=== PATIENT | female | born 1940 | race Caucasian/White ===

== ENCOUNTER 2023-12-09 08:35 | Day surgery (SDC) | payer OTHER, MEDICARE ==
[2023-12-07 10:41] VITALS: BMI 22.8
[2023-12-09] MEDS: TROPICAMIDE 1% OPHTH SOLN 15 ML BOTTLE ONE (09:25)
[2023-12-09] MEDS: CYCLOPENTOLATE 2% OPHTH SOLN 2 ML BOTTLE ONE (09:25)
[2023-12-09] MEDS: CIPROFLOXACIN 0.3% EYE DROPS 5 ML BOTTLE ONE (09:25)
[2023-12-09] MEDS: PHENYLEPHRINE 2.5% OPTHALMIC DROP 2ML BOTTLE ONE (09:25)
[2023-12-09 09:26] VITALS: RESP 18
[2023-12-09] MEDS ORDERED: EPINEPHrine/PF 1 MG/1 ML (1:1,000) AMPULE ONE (09:28)
[2023-12-09] MEDS ORDERED: CARBACHOL 0.01% INTRA-OCULAR 1.5 ML VIAL ONE (09:28)
[2023-12-09] MEDS ORDERED: BSS (NA/CA/MG/K) BALANCED SALT SOLUTION OPHTH SOLN 15 ML BOTTLE ONE (09:28)
[2023-12-09] MEDS ORDERED: LIDOCAINE 1% P/F 10 MG/ML VIAL ONE (09:28)
[2023-12-09] MEDS ORDERED: TETRACAINE 0.5% OPHTH SOLN 2 ML BOTTLE ONE (09:28)
[2023-12-09] MEDS ORDERED: NEO/POLYMYX B SULF/DEXAMETH OPHTHALMIC 5ML BOTTLE ONE (09:28)
[2023-12-09] MEDS ORDERED: MIDAZOLAM HCL 2 MG/2 ML SINGLE DOSE VIAL ONE (10:22)
[2023-12-09] MEDS ORDERED: ONDANSETRON 4 MG/2 ML VIAL ONE (10:22)
[2023-12-09 12:09] VITALS: BP 121/56; PULSE 68; TEMP 98
== END 2023-12-09 12:00 | disposition home or self-care (01) ==
LOC: FASU 08:35
PROVIDERS: ATTEND Ophthalmology
PROC: 08RK3JZ Replacement of Left Lens with Synthetic Substitute, Percutaneous Approach (ICD-10-PCS; principal; 2023-12-09 10:51)
DX: H26.8 Other specified cataract (principal)
CPT/HCPCS: 66984; V2632; 82962

== ENCOUNTER 2024-03-23 07:09 | Day surgery (SDC) | payer OTHER, MEDICARE ==
[2024-03-17 14:47] VITALS: BMI 22.8
[2024-03-23] MEDS ORDERED: CARBACHOL 0.01% INTRA-OCULAR 1.5 ML VIAL ONE (07:22)
[2024-03-23] MEDS ORDERED: NEO/POLYMYX B SULF/DEXAMETH OPHTHALMIC 5ML BOTTLE ONE (07:22)
[2024-03-23] MEDS ORDERED: TETRACAINE 0.5% OPHTH SOLN 2 ML BOTTLE ONE (07:22)
[2024-03-23] MEDS ORDERED: EPINEPHrine/PF 1 MG/1 ML (1:1,000) AMPULE ONE (07:22)
[2024-03-23] MEDS ORDERED: BSS (NA/CA/MG/K) BALANCED SALT SOLUTION OPHTH SOLN 15 ML BOTTLE ONE (07:22)
[2024-03-23] MEDS ORDERED: LIDOCAINE 1% P/F 10 MG/ML VIAL ONE (07:22)
[2024-03-23] MEDS: TROPICAMIDE 1% OPHTH SOLN 15 ML BOTTLE ONE (07:30)
[2024-03-23] MEDS: PHENYLEPHRINE 2.5% OPTHALMIC DROP 2ML BOTTLE ONE (07:30)
[2024-03-23] MEDS: CIPROFLOXACIN 0.3% EYE DROPS 5 ML BOTTLE ONE (07:30)
[2024-03-23] MEDS: CYCLOPENTOLATE 2% OPHTH SOLN 2 ML BOTTLE ONE (07:30)
[2024-03-23] MEDS ORDERED: MIDAZOLAM HCL 2 MG/2 ML SINGLE DOSE VIAL ONE (08:30)
[2024-03-23] MEDS ORDERED: ONDANSETRON 4 MG/2 ML VIAL ONE (08:52)
[2024-03-23 13:19] VITALS: RESP 16; TEMP 96.8
[2024-03-23 13:24] VITALS: BP 134/66; PULSE 78
== END 2024-03-23 10:05 | disposition home or self-care (01) ==
LOC: FASU 07:09
PROVIDERS: ATTEND Ophthalmology
PROC: 08RJ3JZ Replacement of Right Lens with Synthetic Substitute, Percutaneous Approach (ICD-10-PCS; principal; 2024-03-23 08:53)
DX: H26.8 Other specified cataract (principal); H21.541 Posterior synechiae (iris), right eye
CPT/HCPCS: 66982; V2632; 82962